=== PATIENT | female | born 1995 | race American Indian/Alaskan Native ===

== ENCOUNTER 2016-11-09 22:08 | Emergency (ER) | payer SELFPAY ==
--- NOTE | 2016-11-10 02:15 | Emergency Department Report ---
ED Rash HPI - HPI Chief Complaint: Allergic Reaction Stated Complaint: ALLERGIC REACTION/NECK ITCHING Time Seen by Provider: 11/10/16 01:55 Duration: 4 Days Location: Neck, Chest, Back, Abdomen, Upper Extremities Suspected Cause: Unknown Rash Symptoms: Yes Itching, No Facial Swelling, No Tongue/Oral Swelling, No Breathing Difficulties, No Choking Sensation, No Wheezing/Dyspnea, No Peeling, No Blistering, No Fever, No Lightheaded, No Malaise, No Myalgias (denies any pain.) Severity: moderate Other History: Patient here reported that she has rash all over body 4 days. She is unsure of cause. She's never had this happened in the past. Denies any coughing, sore throat, swelling of tongue or lips, wheezing or stridor. She reports the rash is red and itching. denies any fever or chills. Denies any new food, detergent, medication in her environment. The rash has not spread but it itching worse over the 4 day period. She has been using topical over-the -counter medication but is not helping. ED Review of Systems ROS: Stated complaint: ALLERGIC REACTION/NECK ITCHING Other details as noted in HPI Comment: All other systems reviewed and negative Constitutional: denies: chills, fever, malaise Eyes: denies: eye discharge ENT: denies: throat pain, congestion Respiratory: no symptoms reported Cardiovascular: denies: chest pain, palpitations, edema, syncope Gastrointestinal: denies: abdominal pain, nausea, vomiting, diarrhea Musculoskeletal: denies: back pain, arthralgia, myalgia Skin: rash, pruritus Neurological: denies: headache, weakness, numbness, paresthesias, abnormal gait , vertigo ED Past Medical Hx - Past Medical History Previous Medical History?: No - Surgical History Past Surgical History?: No - Family History Family history: no significant - Social History Smoking Status: Never Smoker Substance Use Type: None - Medications Home Medications: Home Medications Medication Instructions Recorded Confirmed Last Taken Type Cetirizine HCl [ZyrTEC] 10 mg PO DAILY #7 capsule 11/10/16 Unknown Rx methylPREDNISolone [Medrol] 4 mg PO QAM #1 tab.ds.pk 11/10/16 Unknown Rx Rash Exam - Exam General: Vital signs noted. No distress. Alert and acting appropriately. This is a 20-year-old female well-nourished well-developed in no acute distress. HEENT: No Periorbital Edema, No Conjuctival Injection, No Chemosis, No Perioral Edema, No Tongue Edema, No Uvular Edema, No Compromised Airway, No Drooling Lungs: Yes Good Air Exchange (lungs sounds clear and equal to lung nguyen and normal work of breathing), No Wheezes, No Ronchi, No Stridor, No Cough, No Labored Respirations, No Retractions, No Use of Accessory Muscles, No Other Abnormal Lung Sounds Heart: Yes Regular, No Murmur Skin: Yes Urticarial Rash, Yes Erythema (Flat rash sparsley scattered to BUE, anterior and posterior thorax and neck. urticaral in nature. NTTP.), No Maculopapular Rash, No Morbilliform rash, No Bulla(e), No Excoriations, No Weeping, No Tenderness, No Edema, No Encrustations, No Other Other: Positive: Abdomen Normal, Neurologic Normal, Musculoskeletal Normal ED Course Vital Signs 11/09/16 22:42 Temperature 98.3 F Pulse Rate 73 Respiratory 12 Rate Blood Pressure 114/70 O2 Sat by Pulse 100 Oximetry Vital Signs 11/09/16 11/10/16 22:42 02:36 Temperature 98.3 F 97.8 F Pulse Rate 73 73 Respiratory 12 20 Rate Blood Pressure 114/70 Blood Pressure 114/71 [Left] O2 Sat by Pulse 100 100 Oximetry - Reevaluation(s) Reevaluation #1: 11/10/16 03:34 given Benadryl 50 mg IM and Deltasone 60 mg when necessary emergency room. On reevaluation the rash is subsiding and patient says she is ready to go. No respiratory complaints and no angioedema with rash. 11/10/16 07:08 ED Medical Decision Making - Medical Decision Making ED course: Since the emergency room with her family and reported that she's been having an itchy rash for over 4 days. She said rash is not progressive that itching is worse since the rash started. Denies respiratory symptoms with rash. Given50 mg IM and Zofran 60 mg by mouth in Emergency room for urticarial rash. On reevaluation, rash is subsiding. I explained to patient discharge diagnosis and treatment plan and she voiced understanding. Patient discharged home with her family in stable condition with prescription for Zyrtec and Medrol Dosepak. I explained to her if rash becomes worse and/or if she develops cough, wheezing, stridor, swelling of tongue or neck and a hoarseness to voice to return to emergency room Otherwise ,follow-up with business transformation manager in 2-3 days. Critical care attestation.: If time is entered above; I have spent that time in minutes in the direct care of this critically ill patient, excluding procedure time. ED Disposition Clinical Impression: Urticarial rash, Pruritic dermatitis Disposition: DISCHARGED TO HOME OR SELFCARE Is pt being admited?: No Does the pt Need Aspirin: No Condition: Stable Instructions: Urticaria (ED), Itchy Skin (ED) Additional Instructions: Please return to the emergency room if rash worsens, widening of time, throat or lips. Coughing, wheezing, stridor , change in 4 days and/or numbness and tingling on the lips or tongue. Take medication as instructed. If he remains stable and rash improvement you can follow up with business transformation manager. Referred to discharge instruction paperwork phone number and address . Prescriptions: Cetirizine HCl [ZyrTEC] 10 mg PO DAILY #7 capsule methylPREDNISolone [Medrol] 4 mg PO QAM #1 tab.ds.pk Referrals: PRIMARY CARE, [Primary Care Provider] - 2-3 Days LEYLA QUINTERO MD [Staff Physician] - 2-3 Days Forms: Accompanied Note, Work/School Release Form(ED)
[2016-11-10] MEDS ORDERED: BENADRYL IM ONE (02:18)
[2016-11-10] MEDS ORDERED: DELTASONE PO ONE (02:19)
[2016-11-10 02:37] VITALS: BP 114/71
== END 2016-11-10 04:03 | disposition home or self-care (01) ==
LOC: ED 22:08
DX: L29.9 Pruritus, unspecified (principal); L30.8 Other specified dermatitis
CPT/HCPCS: 96372; 99282; J1200; J7512